=== PATIENT | female | born 1945 | race Hispanic/Latino ===

== ENCOUNTER 2019-06-01 21:00 | Emergency (ER) | payer OTHER ==
[2019-06-01 22:38] LABS: Absolute Lymphocytes (CBC) 2.6 K/uL (0.7-4.9); Basophils % 0.6 % (0-1.3); Hematocrit 37.9 % (36.0-45.0); Lymphocytes % 17.7 % (15.3-44.8); MPV 11.5 fL (7.6-11.3); RBC Red Blood Cell Count 4.35 M/uL (3.86-4.86)
[2019-06-01 22:41] LABS: Protime INR 1.11
--- NOTE | 2019-06-01 23:13 | RAD REPORT ---
EXAM DESCRIPTION: RAD - Chest Single View - 06/01/2019 10:10 pm CLINICAL HISTORY: DYSPNEA Chest pain. COMPARISON: No comparisons FINDINGS: Portable technique limits examination quality. The lungs are grossly clear. The heart is normal in size. No displaced fractures. IMPRESSION: No acute intrathoracic process suspected.
[2019-06-01 23:17] LABS: ALT/SGPT 19 U/L (12-78); AST/SGOT 15 U/L (15-37); Albumin 3.1 g/dL (3.4-5.0); Alkaline Phosphatase 148 U/L (45-117); BUN Blood Urea Nitrogen 15 mg/dL (7-18); Bicarbonate 31 mmol/L (21-32); Bilirubin Direct 0.2 mg/dL (0-0.2); Bilirubin Total 0.6 mg/dL (0.2-1.0); Creatine Phosphokinase 100 U/L (26-192); Glucose Level 280 mg/dL (74-106); Potassium 3.7 mmol/L (3.5-5.1); Protein, Total 7.7 g/dL (6.4-8.2); Sodium Level 136 mmol/L (136-145)
[2019-06-02 00:19] LABS: Troponin (Emerg Dept Use Only) < 0.02 ng/mL (0.0-0.045)
--- NOTE | 2019-06-02 00:43 | EDPHYS ---
Physician Documentation [facility] Name: Breanne Alfred Age: 73 yrs Sex: Female : 1945 Arrival Date: 06/01/2019 Time: 21:06 Bed 15 Private MD: ED Physician Thomas Garcia HPI: 05/31 22:06 This 73 yrs old Female presents to ER via EMS with complaints of cough, wound. jr8 22:06 Patient stated that she has had cough, runny nose, n/v/d for past few days. Has also jr8 had wound to left inner thigh that is looking worse. Started to run fevers. From out of town . Severity of symptoms: At their worst the symptoms were moderate in the emergency department the symptoms are unchanged. The patient has not experienced similar symptoms in the past. The patient has not recently seen a physician. Historical: - Allergies: 22:26 No Known Allergies; mg2 - Immunization history:: Flu vaccine is not up to date. - Social history:: Smoking status: Patient denies any tobacco usage or history of. ROS: 22:06 Eyes: Negative for injury, pain, redness, and discharge, Neck: Negative for injury, jr8 pain, and swelling, Cardiovascular: Negative for chest pain, palpitations, and edema, Back: Negative for injury and pain, MS/Extremity: Negative for injury and deformity, Neuro: Negative for headache, weakness, numbness, tingling, and seizure. 22:06 Constitutional: Positive for fever. 22:06 ENT: Positive for rhinorrhea. 22:06 Respiratory: Positive for cough, Negative for dyspnea on exertion, shortness of breath, sputum production, wheezing. 22:06 Abdomen/GI: Positive for nausea, vomiting, and diarrhea, Negative for abdominal pain, constipation, abdominal cramps, abdominal distension. 22:06 Skin: Positive for ulceration, of the left inner thigh. Exam: 22:11 Eyes: Pupils equal round and reactive to light, extra-ocular motions intact. Lids and jr8 lashes normal. Conjunctiva and sclera are non-icteric and not injected. Cornea within normal limits. Periorbital areas with no swelling, redness, or edema. ENT: Nares patent. No nasal discharge, no septal abnormalities noted. Tympanic membranes are normal and external auditory canals are clear. Oropharynx with no redness, swelling, or masses, exudates, or evidence of obstruction, uvula midline. Mucous membranes moist. Neck: Trachea midline, no thyromegaly or masses palpated, and no cervical lymphadenopathy. Supple, full range of motion without nuchal rigidity, or vertebral point tenderness. No Meningismus. Cardiovascular: Regular rate and rhythm with a normal S1 and S2. No gallops, murmurs, or rubs. Normal PMI, no JVD. No pulse deficits. Respiratory: Lungs have equal breath sounds bilaterally, clear to auscultation and percussion. No rales, rhonchi or wheezes noted. No increased work of breathing, no retractions or nasal flaring. Abdomen/GI: Soft, non-tender, with normal bowel sounds. No distension or tympany. No guarding or rebound. No evidence of tenderness throughout. Back: No spinal tenderness. No costovertebral tenderness. Full range of motion. MS/ Extremity: Pulses equal, no cyanosis. Neurovascular intact. Full, normal range of motion. Neuro: Awake and alert, GCS 15, oriented to person, place, time, and situation. Cranial nerves II-XII grossly intact. Motor strength 5/5 in all extremities. Sensory grossly intact. Cerebellar exam normal. Normal gait. 22:11 Skin: Patient has approximately 3.5 cm open ulcerated wound to left inner thigh with mild erythema surrounding wound and black eschar film present . Vital Signs: 21:06 BP 155 / 82; Pulse 91; Resp 18; Temp 99.8(TE); Pulse Ox 100% on R/A; Weight 77.11 kg; mg2 Height 5 ft. 2 in. (157.48 cm); 22:00 BP 145 / 78; Pulse 90; Resp 18; Pulse Ox 98% on R/A; mg2 23:07 BP 155 / 87 LA Sitting (auto/reg); Pulse 96 MON; Pulse Ox 95% on R/A; mb4 06/01 00:20 BP 138 / 78; Pulse 92; Resp 18; Pulse Ox 96% on R/A; mg2 01:11 BP 145 / 78; Pulse 92; Resp 18; Temp 98.6; Pulse Ox 99% on R/A; mg2 05/31 21:06 Body Mass Index 31.09 (77.11 kg, 157.48 cm) mg2 MDM: 05/31 21:28 Patient medically screened. jr8 03/02 00:39 Data reviewed: vital signs, nurses notes, lab test result(s), EKG, radiologic studies, [facility] plain films. Data interpreted: Pulse oximetry: on room air is 95 %. Interpretation: normal. Counseling: I had a detailed discussion with the patient and/or guardian regarding: the historical points, exam findings, and any diagnostic results supporting the discharge/admit diagnosis, lab results, radiology results, the need for outpatient follow up, a family practitioner, a general surgeon, to return to the emergency department if symptoms worsen or persist or if there are any questions or concerns that arise at home. Response to treatment: the patient's symptoms have mildly improved after treatment. ED course: Discussed with patient most likely viral illness causing the URI symptoms with vomiting. Could be influenza but test resulted as negative. Either way would treat symptomatically at this time. Will be on Abx for wound. Patient going back to [place] tomorrow. Needs to f/u with PCP and surgeon for wound therapy. No cellulitis at this time . 05/31 21:45 Order name: Influenza Screen (a \T\ B) [facility] 05/31 21:45 Order name: Troponin (emerg Dept Use Only) [facility] 05/31 21:45 Order name: Sed Rate [facility] 05/31 21:45 Order name: CPK [facility] 05/31 21:45 Order name: Basic Metabolic Panel [facility] 05/31 21:45 Order name: Blood Culture Adult (2) [facility] 05/31 21:45 Order name: CBC with Diff [facility] 05/31 21:45 Order name: Lactate [facility] 05/31 21:45 Order name: LFT's [facility] 05/31 21:45 Order name: Procalcitonin [facility] 05/31 21:45 Order name: Protime (+inr); Complete Time: 23:46 [facility] 05/31 21:45 Order name: Ptt, Activated; Complete Time: 23:46 [facility] 05/31 21:46 Order name: Influenza Screen (A ; Complete Time: 23:46 [facility] 05/31 21:45 Order name: Chest Single View XRAY; Complete Time: 23:46 [facility] 05/31 21:45 Order name: Accucheck; Complete Time: 23:58 [facility] 05/31 21:45 Order name: Cardiac monitoring; Complete Time: 22:25 8 05/31 21:45 Order name: EKG - Nurse/Tech; Complete Time: 23:58 jr8 05/31 21:45 Order name: IV Saline Lock - Large Bore; Complete Time: 22:25 8 05/31 21:46 Order name: Troponin (Emerg Dept Use Only); Complete Time: 00:30 EDMS 05/31 21:46 Order name: Sedimentation Rate, Westergren; Complete Time: 23:46 EDMS 05/31 21:46 Order name: Creatine Phosphokinase; Complete Time: 00:30 EDMS 05/31 21:46 Order name: Basic Metabolic Panel; Complete Time: 00:30 EDMS 05/31 21:46 Order name: Blood Culture [facility] 05/31 21:46 Order name: CBC with Automated Diff; Complete Time: 23:46 EDMS 05/31 21:46 Order name: Lactate; Complete Time: 23:46 EDMS 05/31 21:46 Order name: Liver (Hepatic) Function; Complete Time: 00:30 EDMS 05/31 21:46 Order name: Procalcitonin; Complete Time: 23:46 EDMS 05/31 21:45 Order name: Labs collected and sent; Complete Time: 22:25 8 05/31 21:45 Order name: O2 Per Protocol; Complete Time: 22:25 8 05/31 21:45 Order name: O2 Sat Monitoring; Complete Time: 22:25 jr8 05/31 21:45 Order name: Urine Dipstick-Ancillary (obtain specimen); Complete Time: 23:58 jr8 Administered Medications: 01:10 Drug: Tamiflu 75 mg Route: PO; mg2 01:10 Follow up: Response: No adverse reaction; Medication administered at discharge. mg2 01:10 Drug: Bactrim (160 mg-800 mg (DS) 1 tablet Route: PO; mg2 01:10 Follow up: Response: No adverse reaction; Medication administered at discharge. mg2 Disposition: : Co-signature as Attending Physician, Thomas Garcia MD. pkl Disposition: 06/02/19 00:41 Discharged to Home. Impression: Open wound of thigh, Viral infection of unspecified site. - Condition is Stable. - Discharge Instructions: Viral Respiratory Infection, Surgical Wound Debridement. - Prescriptions for Zofran 4 mg Oral Tablet - take 1 tablet by ORAL route every 12 hours As needed; 20 tablet. Bactrim DS 800- 160 mg Oral Tablet - take 1 tablet by ORAL route every 12 hours for 10 days; 20 tablet. Tamiflu 75 mg Oral Capsule - take 1 tablet by ORAL route every 12 hours for 5 days; 10 tablet. - Medication Reconciliation Form, Thank You Letter, Antibiotic Education, Prescription Opioid Use form. - Follow up: Private Physician; When: 2 - 3 days; Reason: Recheck today's complaints, Continuance of care, Re-evaluation by your physician. - Problem is new. - Symptoms have improved. Signatures: Dispatcher [employer] EDMS Thomas Garcia MD MD pkl Roszak, Josh, PA PA jr8 Александр Shook RN RN mg2 Corrections: (The following items were deleted from the chart) 01:13 00:41 06/02/2019 00:41 Discharged to Home. Impression: Open wound of thigh; Viral mg2 infection of unspecified site. Condition is Stable. Forms are Medication Reconciliation Form, Thank You Letter, Antibiotic Education, Prescription Opioid Use. Follow up: Private Physician; When: 2 - 3 days; Reason: Recheck today's complaints, Continuance of care, Re-evaluation by your physician. Problem is new. Symptoms have improved. jr8
--- NOTE | 2019-06-02 00:43 | ER ---
Nurse's Notes [facility] Name: Breanne Alfred Age: 73 yrs Sex: Female : 1945 Arrival Date: 06/01/2019 Time: 21:06 Bed 15 Private MD: Diagnosis: Open wound of thigh;Viral infection of unspecified site Presentation: 05/31 21:06 Chief complaint: Patient states: patient has diarrhea,n/v, cough since yesterday. mg2 [id number]. she also has old wound on her left thigh. Coronavirus screen: The patient has NOT traveled to [place] in the past 14 days. Proceed with normal triage procedures. The patient has NOT had contact with known and/or suspected case of Coronavirus. Proceed with normal triage procedures. Ebola Screen: No symptoms or risks identified at this time. Initial Sepsis Screen: Does the patient meet any 2 criteria? No. Patient's initial sepsis screen is negative. Does the patient have a suspected source of infection? No. Patient's initial sepsis screen is negative. Risk Assessment: Do you want to hurt yourself or someone else? Patient reports no desire to harm self or others. 21:06 Method Of Arrival: EMS: [facility] 21:06 Acuity: NUHA 3 mg2 23:00 Onset of symptoms was May 31, 2019. mg2 Triage Assessment: 06/01 00:02 General: Behavior is calm, cooperative. mg2 Historical: - Allergies: 05/31 22:26 No Known Allergies; mg2 - Immunization history:: Flu vaccine is not up to date. - Social history:: Smoking status: Patient denies any tobacco usage or history of. Screenin/02 00:01 Abuse screen: Denies threats or abuse. Denies injuries from another. Nutritional mg2 screening: No deficits noted. Tuberculosis screening: No symptoms or risk factors identified. Fall Risk IV access (20 points). Assessment: 05/31 23:00 General: Appears in no apparent distress. comfortable. Pain: Complains of pain in mg2 abdomen. Neuro: Level of Consciousness is awake, alert, obeys commands, Oriented to person, place, time, situation. Cardiovascular: Capillary refill < 3 seconds. Respiratory: Reports cough that is Airway is patent Respiratory effort is even, unlabored, Respiratory pattern is regular, symmetrical. GI: Reports nausea, vomiting. : No signs and/or symptoms were reported regarding the genitourinary system. EENT: No signs and/or symptoms were reported regarding the EENT system. Derm: Skin is pink, warm \T\ dry. normal, Wound noted left leg. Musculoskeletal: Circulation, motion, and sensation intact. Capillary refill < 3 seconds. 23:45 Reassessment: Patient appears in no apparent distress at this time. Patient and/or mg2 family updated on plan of care and expected duration. Pain level reassessed. Patient is alert, oriented x 3, equal unlabored respirations, skin warm/dry/pink. 03 00:20 Reassessment: Patient appears in no apparent distress at this time. Patient and/or mg2 family updated on plan of care and expected duration. Pain level reassessed. Patient is alert, oriented x 3, equal unlabored respirations, skin warm/dry/pink. Vital Signs: 05/31 21:06 BP 155 / 82; Pulse 91; Resp 18; Temp 99.8(TE); Pulse Ox 100% on R/A; Weight 77.11 kg; mg2 Height 5 ft. 2 in. (157.48 cm); 22:00 BP 145 / 78; Pulse 90; Resp 18; Pulse Ox 98% on R/A; mg2 23:07 BP 155 / 87 LA Sitting (auto/reg); Pulse 96 MON; Pulse Ox 95% on R/A; mb4 03 00:20 BP 138 / 78; Pulse 92; Resp 18; Pulse Ox 96% on R/A; mg2 01:11 BP 145 / 78; Pulse 92; Resp 18; Temp 98.6; Pulse Ox 99% on R/A; mg2 05/31 21:06 Body Mass Index 31.09 (77.11 kg, 157.48 cm) mg2 ED Course: 05/31 21:06 Patient arrived in ED. mg2 21:09 Triage completed. mg2 21:09 Arm band placed on. mg2 21:27 Lionel Garduno PA is PHCP. jr8 21:27 Thomas Garcia MD is Attending Physician. jr8 21:51 Александр Shook RN is Primary Nurse. mg2 22:11 Chest Single View XRAY In Process Unspecified. EDMS 22:30 Inserted saline lock: 20 gauge in right antecubital area, using aseptic technique. mg2 Blood collected. 22:55 EKG done, by ED staff. mb4 06/01 00:01 Patient has correct armband on for positive identification. Door closed. mg2 00:01 No provider procedures requiring assistance completed. mg2 01:12 IV discontinued, intact, bleeding controlled, No redness/swelling at site. Pressure mg2 dressing applied. Administered Medications: 01:10 Drug: Tamiflu 75 mg Route: PO; mg2 01:10 Follow up: Response: No adverse reaction; Medication administered at discharge. mg2 01:10 Drug: Bactrim (160 mg-800 mg (DS) 1 tablet Route: PO; mg2 01:10 Follow up: Response: No adverse reaction; Medication administered at discharge. mg2 Outcome: 00:41 Discharge ordered by . jr8 01:12 Discharged to home via wheelchair, with family. mg2 01:12 Condition: stable 01:12 Discharge instructions given to patient, family, Instructed on discharge instructions, follow up and referral plans. medication usage, Demonstrated understanding of instructions, follow-up care, medications, Prescriptions given X 3. 01:13 Patient left the ED. mg2 Signatures: Dispatcher [employer] EDMS Lionel Garduno PA PA jr8 Александр Shook, RN RN mg2 Katja Bowens mb4
[2019-06-02] MEDS ORDERED: SMZ./TMP. 800/160 MG TABLET ONE (00:56)
[2019-06-02] MEDS ORDERED: OSELTAMIVIR 75 MG CAP ONE (00:56)
[2019-06-02 02:24] VITALS: BP 145/78; TEMP 98.6; O2SAT 99
--- NOTE | 2019-06-02 15:33 | EKG ---
Test Date: 2019-06-01 Test Time: 22:55:21 [employer] Supervisor: KWADWO MEASUREMENT RESULTS: Intervals: Rate: 95 MA: 132 QRSD: 74 QT: 390 QTc: 490 [place]: P: 64 MA: 132 QRS: -14 T: 38 INTERPRETIVE STATEMENTS: Normal sinus rhythm Prolonged QT Abnormal ECG No previous ECG available for comparison Electronically Signed On 06-02-19 15:32:34 BANQUET STEWARDESS by [place]
== END 2019-06-02 01:13 | disposition home or self-care (01) ==
LOC: ER 21:00
DX: B34.9 Viral infection, unspecified (principal); S71.102A Unspecified open wound, left thigh, initial encounter; X58.XXXA Exposure to other specified factors, initial encounter
CPT/HCPCS: 36415; 71045; 80048; 80076; 82550; 83605; 84145; 84484; 85025; 85610; 85652; 85730; 87040; 87804; 93005; 99284